=== PATIENT | female | born 1985 | race Caucasian/White ===

== ENCOUNTER 2016-11-15 11:51 | Inpatient (IN) | payer OTHER ==
[2016-12-01] MEDS ORDERED: OXYTOCIN IN LR 500 ML IV ONE ×2 (07:37→07:41)
[2016-12-01] MEDS ORDERED: IV START KIT ONE (07:41)
[2016-12-01] MEDS ORDERED: SODIUM CHLORIDE 0.9% FLUSH 10 ML ONE (07:41)
[2016-12-01] MEDS ORDERED: MINERAL OIL 25 ML BOT ONE (07:41)
[2016-12-01] MEDS ORDERED: PUMP TUBING ONE (07:41)
[2016-12-01] MEDS ORDERED: LIDOCAINE Viscous 2% 15 ML UDCUP ONE (07:41)
[2016-12-01] MEDS ORDERED: OXYTOCIN 10 UNITS/ML VIAL ONE (07:41)
[2016-12-01] MEDS ORDERED: LIDOCAINE 1% (PRES FREE) 30 ML VIAL ONE (07:41)
[2016-12-01 09:01] VITALS: BMI 36.3
[2016-12-01 10:26] LABS: HEMATOCRIT 39.7 % (37.0-47.0); HEMOGLOBIN 13.3 gm/l (12.0-16.0); MEAN CELL VOLUME 89.2 fl (81.0-99.0); MEAN CORPUSCULAR HEMOGLOBIN 29.9 pg (27.0-31.0); MEAN CORPUSCULAR HGB CONC 33.5 g/dl (33.0-37.0); RED CELL DISTRIBUTION WIDTH 14.6 % (11.5-14.5)
--- NOTE | 2016-12-01 14:23 | PCMAN ---
OB Admission Note - History : 2 Term: 1 : 0 Abortions (S&E): 0 Livin Gestational Age (weeks): 42 Days (#/7): 2 Admit Cervical Dilation:: 4 Admit Cervical Effacement (%):: 80 Admit Station:: -1 Admit Presentaton:: vertex Membrane Status: Intact Rupture (Date): 12/01/16 Rupture (Time): 13:00 Membranes Comment:: clear fluid Contractions: Yes Contraction Frequency:: occasional Heart Rate:: 135 (mod variability, pos accels, neg decels) Status:: Cat 1 EFW:: 7.5lbs Summary of Course:: HPI Cheri is here today for IOL at 42w 2d for post dates and will be TOLAC. She was having contractions off and on yesterday, but today does not have much to report. Course: Cheri is a 31yo TOLAC at 42w2d presenting for IOL for post dates. Her dates are by unsure LMP consistent with 20w3d US. She presented late to care at 20 weeks with the midwives for a total of 14 visits. Prepregnancy BMI of 30.5 with total weight gain of 28lbs. was complicated by: influenza at 27 weeks that was treated with tamiflu post dates - with reassuring testing reactive NSTs, 8/8 BPP and NICA 8.4 at 42w0d Med Hx: Migraines in +PPD in the [facility] (uncertain year) Tx with isoniazid Surg Hx: CS Oct 2014 Medical Officer Psychiatry Hx: 2015 - LTCS for minimal progress, direct OP and intolerance at 42 weeks 07/06/2014 Pap WNL, no Hx abnormals US: anatomy scan 20w3d WNL Allergies: NKDA - Labs Blood Type: O (+) positive Hct/Hgb:: 13.3/39.7 Rubella Status: Immune GBS Status: Negative Abnormal Labs: None Other Labs:: abnormal 1hr Gtt, normal 3hr GTT Platelets 184 - Review of Systems Complete ROS is negative. Describes active fetus, denies LOF or vag bleeding. Denies contractions. - Physical Exam General: Afebrile Psych/Mental Status: Mood/Affect Appropriate, Judgment/Insight Intact Neurological: Grossly Intact, Alert, Oriented x 4 HEENT: Atraumatic Lungs: Clear to Auscultation Bilaterally, Normal Air Movement Cardiovascular: Regular Rate and Rhythm, Normal S1, Normal S2 Genitourinary: Normal Female Genitalia Rectal Exam: Deferred Extremities: Full ROM, Normal Pulses Skin: Normal Color - Problems (1) Maternal care for scar from previous delivery Qualifiers: Previous delivery type: low transverse Qualifier Code: ( O34.211) Maternal care for low transverse scar from previous delivery Status: Acute Code: O34.219 (2) Post term at 42 weeks gestation Status: Acute Code: O48.0Assessment/Plan: A: Undelivered 31yo intrauterine at 42w2d TOLAC GBS neg Not in labor Fetus Cat 1 Post Term Chou 9 AROM clear fluid P: Admit to L& D Long discussion re: options for IOL when TOLAC. Patient agrees to AROM as best chance to allow her body to respond and go into labor. AROM for clear fluid. cEFM per protocol for TOLAC. OB & anesthesia notified and are readily available on campus IV, admit labs, type and crossmatch Allow 2-4 hours to assess her body's response to AROM Continue with active movements and upright positions to facilitate descent. Anticipate active labor and
[2016-12-01] MEDS: LACTATED RINGERS 1,000 ML IV SCH ×3 (16:10→20:30)
--- NOTE | 2016-12-01 16:11 | PDOC36 ---
Provider Note Subject: Labor Progress Note Note: S: Cheri is not really feeling any of the very occasional contractions that she has. She is eager to move labor along. O: VS: BP 121/67 P 82 R 16 T37.3C SVE unchanged 3/50%/-1/mid/soft Chou 9 BSL 130 pos accels, no decels, moderate variability ctx q 18-20 mins lasting >90 seconds not felt by patient. Ruptured membranes x 4 hours clear fluid A: Undelivered 31yo intrauterine at 42w2d TOLAC GBS neg Not in labor Fetus Cat 1 Post Term Chou 9 ruptured x 4 hoursclear fluid, afebrile P: Discussion re: no change and no contrations since AROM. SVE with membrane sweep. Consulted oncoming district gauger and Dr. Fairchild (on-call MD) and agree that in context of favorable cervix, low-dose Pit is appropriate. With regular contractions her cervix is highly likely to respond. Low-dose prtocol per Devorah Melendez: start with 1 mU, increase by ones, max 12mU Pitocin. cEFM per protocol for TOLAC. OB & anesthesia aware and readily available on campus Continue with active movements and upright positions to facilitate descent. Anticipate active labor and
[2016-12-01] MEDS: OXYTOCIN IN LR 500 ML IV PRN (16:15)
[2016-12-01] MEDS ORDERED: EPIDURAL PUMP SET ONE (18:33)
[2016-12-01] MEDS ORDERED: FENTANYL/ROPIVACAINE EPIDURAL 250 ML EP ONE (18:33)
[2016-12-01] MEDS ORDERED: EPIDURAL PROCEDURE TRAY ONE (18:36)
[2016-12-01] MEDS ORDERED: EPHEDRINE SULFATE 50 MG/ML 1ML VIAL IV PRN (19:00)
[2016-12-01] MEDS ORDERED: ONDANSETRON 4 MG/2ML 2 ML VIAL IV PRN (19:00)
[2016-12-01] MEDS ORDERED: DIPHENHYDRAMINE HCL 50 MG/1 ML VIAL IV PRN (19:00)
[2016-12-01] MEDS: FENTANYL/ROPIVACAINE EPIDURAL 250 ML EP SCH (19:00)
[2016-12-01] MEDS ORDERED: METOCLOPRAMIDE HCL 5 MG/ML 2ML VIAL IV PRN (19:00)
[2016-12-01] MEDS ORDERED: NALBUPHINE HCL 20 MG/ML AMP IV PRN (19:00)
[2016-12-01] MEDS ORDERED: SODIUM CHLORIDE 0.9% 500 ML IV PRN (19:00)
[2016-12-01] MEDS ORDERED: NALOXONE HCL 0.4 MG/ML VIAL IV PRN (19:00)
[2016-12-01] MEDS ORDERED: LACTATED RINGERS 500 ML IV PRN (19:00)
--- NOTE | 2016-12-01 22:42 | PDOC36 ---
Provider Note Subject: labor progress note - epidural Note: S: Cheri is is up walking and crying with contractions. Asking for an epidural. O: VS: BP 137/81 P 88 T37.0C SVE 5/100%/-1/mid/soft Chou 10 BSL 150 pos accels, no decels, moderate variability ctx q 1-3 mins lasting 60-90 seconds, moderate Ruptured membranes x 5.5hrs Pitocin off due to contraction frequency and pt not coping. A: Undelivered 31yo intrauterine at 42w2d TOLAC GBS neg Labor Fetus Cat 1 Post Term Chou 9 ruptured x 5.5 hoursclear fluid, afebrile P: Epidural ordered. After patient was comfortable, discussed plan to closely monitor for progress, resuming pitocin augmentation as needed and placement of IUPC in order to monitor contractions. risks and benefits reviewed, including risk for infection. patient agrees with plan. Encouraged active maternal position changes. Anticipate .
--- NOTE | 2016-12-01 22:54 | PDOC36 ---
Provider Note Subject: provider note - IUPC Note: S: Cheri is is up walking and crying with contractions. Asking for an epidural. O: VS: BP 104/66 P 90 T37.0C SVE 6/100%/-1/mid/soft, Chou 10 BSL 125 pos accels, no decels, moderate variability ctx tracing q 1-2 mins lasting 80s-4min, moderate with resting tone noted between contractions Ruptured membranes x 7hrs A: Undelivered 31yo intrauterine at 42w2d TOLAC Active Labor Fetus Cat 1 Post Term ruptured x 7hrs, clear fluid, afebrile, GBS neg P: Reviewed challenge of tracing ctx and status as a and gave my recommendation for an IUPC. Patient agrees to plan and IUPC placed. Continue with regular maternal position changes. Anticipate .
[2016-12-02] MEDS: LACTATED RINGERS 1,000 ML IV SCH ×10 (02:28→16:51)
[2016-12-02] MEDS: OXYTOCIN IN LR 500 ML IV PRN ×2 (03:54→04:43)
[2016-12-02] MEDS: FENTANYL/ROPIVACAINE EPIDURAL 250 ML EP SCH ×2 (04:47→09:10)
--- NOTE | 2016-12-02 04:52 | PDOC36 ---
Provider Note Subject: labor progress note - trial of pushing Note: S: Lupillo has been rotating position hands and knees, and high fowlers, napping when she can. Has minimal sensation of contractions. O: VS: BP 104/66 P 89 T98.2F SVE 10/100%/-1 BSL 145 pos accels, occasional variable decelerations, moderate variability ctx tracing q 1-5min, lasting 60-90sec, moderate, MVUs 110 Ruptured membranes x 14hrs A: Undelivered 31yo intrauterine at 42w3d TOLAC Active Labor Fetus Cat 2 for occasional variables Post Term ruptured x 14hrs, clear fluid, afebrile, GBS neg P: Trial of 2nd stage pushing initiated. After 30min of regular contractions and pushing effort, Lupillo made limited progress. Reviewed importance to conserve energy. MVUs 110. Recommended re-initiating oxytocin and consideration of turning down epidural to improve pushing efforts. Lupillo agrees with plan at this time. Plan made to start pit, continue laboring down, and decrease epidural if no change. Will resume pushing in 1-2hrs or with urge to push. Encourage frequent maternal position changes. Anticipate .
--- NOTE | 2016-12-02 07:46 | PDOC36 ---
Provider Note Subject: Labor progress note - pushing S: Lupillo is feeling her contractions more and has been pushing for approximately 2 hours. O: VS: BP 121/76 HR 116 RR 22 T 99.7F SVE 10/100%/0 to +1 with pushing BSL 175, moderate variability, no accels, occasional variable decels ctx tracing q 1-4.5min, Ruptured membranes x 20hrs Pitocin 3mu/min-MVUs difficult to assess d/t maternal pushing A: Undelivered 31yo intrauterine at 42w4d TOLAC 2nd stage-slow progress with pushing Fetus Cat 2 for occasional variables Post-term Ruptured x 20hrs-clear fluid, GBS neg, increasing maternal temperature and tachycardia that do not currently meet presumptive criteria for chorioamnionitis P: Pitocin increased to 3mu/min, as contraction pattern was noted to be inadequate. IUPC remains in place. Encourage frequent maternal position changes. On-call OB aware of pt progress Continue pushing for 1 more hour
[2016-12-02] MEDS ORDERED: ACETAMINOPHEN 500 MG TABLET PO ONE (08:30)
[2016-12-02] MEDS ORDERED: AMPICILLIN SODIUM 2 G VIAL ONE ×3 (08:31→21:06)
[2016-12-02] MEDS ORDERED: PUMP TUBING ONE ×2 (08:32→17:06)
[2016-12-02] MEDS ORDERED: GENTAMICIN SULFATE 800 MG/20 ML VIAL ONE (08:32)
[2016-12-02] MEDS ORDERED: NS 0.9% (MINI-BAG PLUS) 100 ML IV ONE ×3 (08:32→21:06)
[2016-12-02] MEDS: AMPICILLIN SODIUM 2 G in NS 0.9% (MINI-BAG PLUS) 100 ML IV SCH ×3 (08:42→21:18)
[2016-12-02] MEDS: GENTAMICIN SULFATE 120 MG in SODIUM CHLORIDE 0.9% 100 ML IV SCH ×2 (08:57→17:05)
[2016-12-02] MEDS ORDERED: GENTAMICIN SULFATE 800 MG/20 ML VIAL IV SCH (09:00)
[2016-12-02] MEDS: LIDOCAINE 1% (PRES FREE) 30 ML VIAL SUB-Q ONE (09:34)
[2016-12-02 11:04] LABS: HEMATOCRIT 29.7 % (37.0-47.0); HEMOGLOBIN 9.9 gm/l (12.0-16.0); MEAN CELL VOLUME 91.4 fl (81.0-99.0); MEAN CORPUSCULAR HEMOGLOBIN 30.5 pg (27.0-31.0); MEAN CORPUSCULAR HGB CONC 33.3 g/dl (33.0-37.0); RED CELL DISTRIBUTION WIDTH 14.8 % (11.5-14.5)
[2016-12-02] MEDS ORDERED: SODIUM CHLORIDE 0.9% 1,000 ML ONE ×2 (11:08→12:13)
[2016-12-02] MEDS ORDERED: BLOOD Y PLUMSET W/CASSETTE ONE (11:08)
[2016-12-02] MEDS ORDERED: CALCIUM CARBONATE 500 MG TAB.CHEW PO PRN (11:25)
[2016-12-02] MEDS ORDERED: BENZOCAINE/MENTHOL 60 APPLIC/BOT TP PRN (11:25)
[2016-12-02] MEDS ORDERED: DIPHTH,PERTUSS(ACELL),TET VAC 0.5 ML VIAL IM V ONE (11:25)
[2016-12-02] MEDS ORDERED: MEASLES,MUMPS&RUBELLA VACCINE 0.5 ML VIAL SUB-Q V ONE (11:25)
[2016-12-02] MEDS ORDERED: LANOLIN 50 APPLIC/7G TUBE TP PRN (11:25)
[2016-12-02] MEDS ORDERED: ACETAMINOPHEN 325 MG TABLET PO PRN (11:25)
[2016-12-02] MEDS: IBUPROFEN 800 MG TABLET PO SCH ×2 (12:54→19:33)
[2016-12-02] MEDS: DOCUSATE SODIUM 100 MG CAPSULE PO PRN (12:54)
--- NOTE | 2016-12-02 13:29 | PCMDEL ---
Delivery Note - Labor 1st stage (hr/min):: 9h17m 2nd stage (hr/min):: 5h47m 3rd stage (hr/min):: 13m Total (hr/min):: 15h17m Pushed (hr/min):: 4h - Delivery Delivery (Date): 12/02/16 Delivery (Time): 09:04 Infant Gender: Female Weight: 9 lb Presentation: Cephalic Position: OA Umbilical Cord: 3 Vessel, Body Cord (foot cord) 1 Minute Total: 9 5 Minute Total: 9 Placenta:: intact, shultze EBL:: 1826mL Perineum:: 2nd degree lacerations with capsular involvement, bilaeral sulcal lacerations, shallow periurethral laceration. Multiple bleeding (pumping) vessels. Suture:: 3-0 vicryl Anesthesia/Meds:: Epidural, 1% local lidocaine for repair Length ROM:: 22hrs Comments:: The patient made slow progress during second stage with FHTs Category 1-2 (for variable decelerations). She pushed in a variety of positions. OR team was on- site and available. OB back-up was kept informed of pt progress. At 2hrs into pushing, the pt's pushing progress was reassessed with pt, CNM, and RN, and it was determined that she was making progress (albeit slow). The decision was made to continue pushing for 1 more hour. Pitocin was increased to 4mu/min during 2nd stage due to inadequate contraction pattern. IUPC was removed and external toco was placed (IUPC wasn't reading accurately due to pt's pushing efforts). The patient achieved a of a viable female (Apgars 9/9) over a 2nd degree laceration. FOB helped with delivery of baby. Baby was placed on maternal abdomen for drying and stimulation. Cord clamped and cut at approximately 3.5minutes. Active management was initiated with IV pitocin. Placenta delivered with maternal effort and gentle cord traction in shultze, complete, 3-vessel cord. Brisk bleeding was noted at the introitus following the delivery of the placenta and the uterus was found to be firm, deviated to the right. Pt was straight-cathed for 150ml of urine. Perineum was inspected and found to have sustained a shallow periurethral abrasion (hemostatic, not requiring repair), 2nd degree perineal laceration with capsular involvement ( 3rd degree lac was ruled out via digital rectal exam), and bilateral sulcal tears that had 4 bleeding (pumping) vessels. Pressure was applied to the vessels , but they did not clot. Local lidocaine was used for pain relief. The bleeding vessels were repaired with 3-0 vicryl to hemostasis. Sulcal tears and perineal laceration were then repaired to hemostasis and approximation. Total weighed EBL =1,826mL, owed to excessive bleeding from torn blood vessels in sulcal tears. Uterus remained firm throughout. Mom and baby [id number]. Discussed pt's blood loss with pt and her , and reviewed that we will be following her symptoms and lab work closely. If she becomes symptomatic, I let them know that either a blood transfusion or IV iron infusion may be indicated and would be discussed with them. At this time, the pt was stable.
--- NOTE | 2016-12-02 13:31 | PDOC36 ---
Provider Note Subject: Immediate progress note: CNM was called back to room soon after delivery, as the patient complained of dizziness. She appeared pale and diaphoretic on exam. Her uterus was firm and she was in a supine position in bed. She reported dizziness and heart palpitations. The lowest blood pressure taken at this time was 77/42. Extra RN help was called to room. A 2nd IV site was placed and the patient was bolused with LR. A stat CBC was ordered. The patient and her were consented for 2 units of PRBCs to be transfused, consent signed. Lab notified. Pt's blood pressures improved soon after receiving fluid bolus. At time of note, pt is receiving her 1st unit of blood, her symptoms have decreased, and her vital signs have stabilized. A CBC for 24hrs has been ordered. Will continue to closely monitor pt status.
[2016-12-02] MEDS: HYDROCODONE/ACETAMINOPHEN 5/325MG TABLET PO PRN ×3 (14:01→22:09)
[2016-12-02] MEDS: LACTATED RINGERS 1,000 ML IV PRN (14:45)
[2016-12-03] MEDS ORDERED: SODIUM CHLORIDE 0.9% 100 ML IV ONE (01:20)
[2016-12-03] MEDS ORDERED: GENTAMICIN SULFATE 800 MG/20 ML VIAL ONE (01:20)
[2016-12-03] MEDS: GENTAMICIN SULFATE 120 MG in SODIUM CHLORIDE 0.9% 100 ML IV SCH (02:00)
[2016-12-03] MEDS: IBUPROFEN 800 MG TABLET PO SCH ×5 (02:06→19:52)
[2016-12-03] MEDS: HYDROCODONE/ACETAMINOPHEN 5/325MG TABLET PO PRN ×5 (02:15→22:08)
[2016-12-03] MEDS ORDERED: AMPICILLIN SODIUM 2 G VIAL ONE (02:37)
[2016-12-03] MEDS ORDERED: NS 0.9% (MINI-BAG PLUS) 100 ML IV ONE (02:37)
[2016-12-03] MEDS: AMPICILLIN SODIUM 2 G in NS 0.9% (MINI-BAG PLUS) 100 ML IV SCH (03:17)
[2016-12-03] MEDS: LACTATED RINGERS 1,000 ML IV PRN (03:17)
[2016-12-03] MEDS: FENTANYL/ROPIVACAINE EPIDURAL 250 ML EP SCH (07:28)
[2016-12-03] MEDS: DOCUSATE SODIUM 100 MG CAPSULE PO PRN (07:52)
[2016-12-03 09:29] LABS: HEMATOCRIT 31.2 % (37.0-47.0); HEMOGLOBIN 10.6 gm/l (12.0-16.0); MEAN CELL VOLUME 88.6 fl (81.0-99.0); MEAN CORPUSCULAR HEMOGLOBIN 30.1 pg (27.0-31.0); RED CELL DISTRIBUTION WIDTH 15.3 % (11.5-14.5)
[2016-12-03] MEDS ORDERED: IV START KIT ONE (15:30)
[2016-12-03] MEDS ORDERED: LIDOCAINE 1% (PRES FREE) 30 ML VIAL ONE (16:02)
[2016-12-03] MEDS ORDERED: LIDOCAINE Viscous 2% 15 ML UDCUP ONE (16:02)
[2016-12-03] MEDS: LIDOCAINE 1% (PRES FREE) 30 ML VIAL SUB-Q ONE (16:49)
[2016-12-03] MEDS ORDERED: LIDOCAINE Viscous 2% 15 ML UDCUP TP ONE (16:49)
[2016-12-04] MEDS: HYDROCODONE/ACETAMINOPHEN 5/325MG TABLET PO PRN ×2 (04:28→10:53)
[2016-12-04] MEDS: IBUPROFEN 800 MG TABLET PO SCH ×2 (04:28→10:54)
[2016-12-04] MEDS: DOCUSATE SODIUM 100 MG CAPSULE PO PRN (10:54)
--- NOTE | 2016-12-04 11:37 | PDOC39B ---
Hospital Course: ADMIT DATE: 12/01/16 DISCHARGE DATE: 12/04/16 ADMISSION DIAGNOSES: Post-term , TOLAC PROCEDURES: IOL with AROM and pitocin, of viable baby girl. HISTORY OF PRESENT ILLNESS: 31 year old G2 T1 L1 at 42 weeks 3 days presenting with for an IOL, attempting TOLAC. Achieved a of viable baby girl. Complications: chorioamnionitis, severe hemorrhage, separation of pubic symphysis, dehiscence of vaginal and perineal repair, requiring additional repair Day 1 . Received 2 units PRBCs . Seen by PT this morning for PSD. HOSPITAL COURSE: By day of discharge the patient is ambulating, eating, voiding , and passing flatus without difficulty. Pain is controlled and lochia is appropriate. She is exclusively, does report minor blisters bilaterally. Reports pain as well-controlled with current pain meds. Plans to use condoms for contraception. Has good support from and family. Accepts PT referral . Very happy she was able to . Has no questions. - Physical Exam Vital Signs: Temp Pulse Resp BP Pulse Ox 97.7 F 87 16 126/66 96 12/04/16 04:31 12/04/16 04:31 12/04/16 04:31 12/04/16 04:31 12/02/16 12:34 Breast: Nipples Intact (Small blisers bilaterally, no cracking or bleeding) Genitourinary: Normal Female Genitalia (Sutures intact adn well-approximated) Lochia: Light Other Findings: Swelling and tenderness over mons pubis. No erthema or discoloration. - Discharge Diagnosis (1) care and examination of lactating mother Status: AcuteAssessment/Plan: A: Day 2 s/p Lochia stable without major complaints hemorrhage (see separate note) Chorioamnionitis (VSS & afebrile since delivery)-finished antibiotics yesterday AM Pubic symphysis separation P: education handout given and reviewed. Warning signs discussed ( bleeding, infection, DVT/PE, baby blues vs mood disorder) Rx: iron, norco, colace, annusol, ibuprofen Pubic symphysis separation: seen by PT this morning and given instructions on exercises and support belt; PT referral to Barbara Schumacher placed Contraception: condoms, encouraged pelvic rest for at least 6wks to give laceration time to recover Social: encouraged to rest and rely on friends/family for help in the immediate period Follow-up: 12/16/16 keanu Lao in [place] at 3:40 or PRN. (2) hemorrhage of vagina Status: AcuteAssessment/Plan: A: Severe hemorrhage-s/p x2 units of PRBCs transfused Lochia stable Sulcal & perineal repairs intact Mildly anemic Asymptomatic P: Bleeding precautions reviewed Discussed need for extra rest and hydration following significant blood loss. Rx for iron sulfate given Will check CBC at 6wks - Discharge Plan Condition: Stable Disposition: Home Instruction Forms: Vaginal Discharge Instructions Additional Instructions: Congratulations on the of your baby girl! You have a 2-week follow-up appointment scheduled for Monday12/16/16 at 3:40pm with Tashia. If you have any questions or concerns, or if you need to reschedule, please call the clinic at [phone]. Prescriptions: Hydrocortisone 2.5% [Anusol Hc] 1 applic TP TID PRN #1 tube PRN Reason: Hemorrhoids Docusate Sodium [COLACE 100 MG CAPSULE (SHF)] 100 mg PO DAILY PRN #14 cap PRN Reason: Constipation Ibuprofen [Motrin] 1 tab PO Q6H PRN #30 tablet PRN Reason: Pain FERROUS SULFATE (65 Fe) [IRON FERROUS SULFATE 325 MG TABLET (SHF)] 325 mg PO DAILY #30 tab Hydrocodone Bit/Acetaminophen [[place] 5/325] 1 - 2 tab PO Q6H PRN #20 tablet PRN Reason: Pain
[2016-12-04 12:37] VITALS: BP 121/77
--- NOTE | 2016-12-05 12:11 | PDOC44 ---
- Subjective Day: 1 S: Feeling better today and more energized. No dizziness with ambulation but having difficulty due to pubic symphysis separation. Using a walker to walk around the room. Voiding without difficulty. Pain well managed with PO meds. Bleeding getting hydrometer calibrator. exclusively. Infant latched well yesterday but has been cluster feeding today and some difficulty with latch. Has caused some blisters on nipples. Planning discharge home tomorrow. Reports excellent support from and friends. Reports Flatus, Reports Pain Tolerable, Reports , Reports Lochia Light, Reports Tolerating Clear Liquids, Reports Tolerating Regular Diet, Denies Nausea, Denies Vomiting, Denies Fever - Objective Temp Pulse Resp BP Pulse Ox 98.5 F 104 16 121/77 96 12/04/16 08:45 12/04/16 08:45 12/04/16 08:45 12/04/16 08:45 12/02/16 12:34 - Physical Exam General: Afebrile, No Acute Distress Psych/Mental Status: Mood/Affect Appropriate, Judgment/Insight Intact, Bonding Well Neurological: Grossly Intact, Alert, Oriented x 4 Breast: Soft, Skin intact, Tenderness, Nipples Cracked Fundus: Firm, Midline, Below Umbilicus Genitourinary: Normal Female Genitalia, Edema, Other (Second degree laceration and right labial and sulcal tear showing dehiscence. Bleeding stable. Left vaginal wall hematoma (2 cm)) Lochia: Light Extremities: Full ROM, Edema (+1) Skin: Normal Color, Warm, Dry - Problems:Assessment/Plan (1) care and examination of lactating mother Status: AcuteAssessment/Plan: A: Day 2 s/p Lochia stable without major complaints hemorrhage (see separate note) Chorioamnionitis (VSS & afebrile since delivery)-finished antibiotics yesterday AM Pubic symphysis separation P: education handout given and reviewed. Warning signs discussed ( bleeding, infection, DVT/PE, baby blues vs mood disorder) Rx: iron, norco, colace, annusol, ibuprofen Pubic symphysis separation: seen by PT this morning and given instructions on exercises and support belt; PT referral to Barbara Schumacher placed Contraception: condoms, encouraged pelvic rest for at least 6wks to give laceration time to recover Social: encouraged to rest and rely on friends/family for help in the immediate period Follow-up: 12/16/16 keanu Heathelle in [place] at 3:40 or PRN. (2) Laceration of vagina, complicated Status: AcuteAssessment/Plan: Assessment: Day 1 H/H stable after blood transfusion x 2 units Patient asx for post-hemorrhage anemia Separation of pubic symphysis; significant exclusively; cluster feeding Mother knowledgeable about latch; needs support Dehiscence of second degree laceration; recommend repair Plan: PT referral for PS separation Recommended repairing laceration to patient; agrees. Plan D/C home tomorrow Exam: Upon examination; second degree left mediolateral laceration noted with bilateral labial and sulcal tears. Lidocaine gel applied to wound prior to exam and 1% lidocaine injected prior to procedure. Right labial laceration repaired with 4.0 vicryl with subcuticular stitches for good approximation. Right sulcal tear repaired. Perineal laceration repaired with continuous and subcuticular stitches with good appoximation. Patient tolerated the procedure well. EBL 100 mL. Disposition: Anticipate DC Home Tomorrow
== END 2016-12-04 12:00 | disposition home or self-care (01) | DRG 774 ==
LOC: EDSTATUS 11:51 → FBC 12-01 07:05
PROVIDERS: ADMIT Advanced Practice Midwife; ATTEND Advanced Practice Midwife
PROC: 10907ZC Drainage of Amniotic Fluid, Therapeutic from Products of Conception, Via Natural or Artificial Opening (ICD-10-PCS; 2016-12-01)
PROC: 3E033VJ Introduction of Other Hormone into Peripheral Vein, Percutaneous Approach (ICD-10-PCS; 2016-12-01)
PROC: 10H07YZ Insertion of Other Device into Products of Conception, Via Natural or Artificial Opening (ICD-10-PCS; 2016-12-01)
PROC: 4A1H7CZ Monitoring of Products of Conception, Cardiac Rate, Via Natural or Artificial Opening (ICD-10-PCS; 2016-12-01)
PROC: 10E0XZZ Delivery of Products of Conception, External Approach (ICD-10-PCS; principal; 2016-12-02)
PROC: 0KQM0ZZ Repair Perineum Muscle, Open Approach (ICD-10-PCS; 2016-12-02)
PROC: 30233N1 Transfusion of Nonautologous Red Blood Cells into Peripheral Vein, Percutaneous Approach (ICD-10-PCS; 2016-12-02)
DX: O48.0 Post-term pregnancy (principal); O75.2 Pyrexia during labor, not elsewhere classified; O41.1230 Chorioamnionitis, third trimester, not applicable or unspecified; O72.1 Other immediate postpartum hemorrhage; O90.81 Anemia of the puerperium; D62 Acute posthemorrhagic anemia; O34.211 Maternal care for low transverse scar from previous cesarean delivery; O69.81X0 Labor and delivery complicated by cord around neck, without compression, not applicable or unspecified; O70.1 Second degree perineal laceration during delivery; O76 Abnormality in fetal heart rate and rhythm complicating labor and delivery; Z3A.42 42 weeks gestation of pregnancy; Z37.0 Single live birth